=== PATIENT | female | born 1985 | race Caucasian/White ===

== ENCOUNTER 2025-01-19 08:24 | Observation (INO) ==
--- NOTE | 2025-01-19 08:50 | EKG ---
Test Reason : possible stroke Blood Pressure : */* mmHG Vent. Rate : 79 BPM Atrial Rate : 79 BPM P-R Int : 162 ms QRS Dur : 96 ms QT Int : 398 ms P-R-T Axes : 57 22 55 degrees QTc Int : 456 ms Normal sinus rhythm Normal ECG No previous ECGs available Confirmed by Sumit Thorpe MD ([id number]) on 01/19/2025 10:44:27 AM Referred By: Confirmed By: Sumit Thorpe MD
[2025-01-19 08:57] LABS: MEAN PLATELET VOLUME 8.1 fL (7.4-11.0); RED CELL DISTRIBUTION WIDTH 13.8 % (11.6-16.5)
[2025-01-19 09:01] LABS: INR 1.07 (0.8-1.3)
[2025-01-19 09:21] LABS: COR CA(FOR HYPOALB) 9.1 mg/dL (8.5-10.1); COR NA(FOR HYPERGLY) 140 mmol/L (136-145); CREATININE 1.03 mg/dL (0.55-1.02); eGFR NON BLACK RACES > 60 (>60)
--- NOTE | 2025-01-19 09:21 | DR.WEAKNES ---
HPI Time Seen Time Seen by Provider: 01/19/25 09:12 Primary Care Physician Primary Care Physician: Lana Wiggins HPI Comment HPI Comment: Patient had episode of aphasia earlier today. She is already on blood thinners due to history of DVT. Patient states her symptoms have pretty much completely resolved. 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 She does have history of migraines and her blood pressure is very high. Stroke protocol was called and I spoke with Dr. Alex with telemed neurology, she suspects complicated migraine versus hypertensive urgency versus TIA. CT of the head unclear, she reports. Will await radiology interpretation. Complaints Chief Complaint:: pt states that she was on the way to work and was on a phone call with her sister when all of a sudden she became aphasic for about 1.5- 2 minutes. She had no complaints of weakness or other symptoms just some pain that ran under her left eye. 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 hands Family History History of Family Medical Conditions: Yes Family Medical History: Diabetes Mellitus, Cancer, Coronary Artery Disease and Hypertension Social History Does patient currently use any type of tobacco product: No Have you used tobacco products in the last 12 months: No Type of Tobacco Use: None Alcohol Use: None Do you use any recreational Drugs:: No Lives With: Family Lives Where: Home Travel Risk Coronavirus risk:travel/contact w/high risk person: No Has patient experienced Coronavirus symptoms: No Infectious screening Have you traveled outside the country in the last 6 months?: No Isolation: Standard ROS Review of Systems Constitutional: No Symptoms Reported Eyes: No Symptoms Reported ENTM: No Symptoms Reported Respiratoy: No Symptoms Reported Cardiovascular: No Symptoms Reported Gastrointestinal/Abdominal: No Symptoms Reported Genitourinary: No Symptoms Reported Neurological: See HPI Musculoskeletal: No Symptoms Reported Integumentary: No Symptoms Reported Hematologic/Lymphatic: No Symptoms Reported Endocrine: No Symptoms Reported Psychiatric: No Symptoms Reported All Other Systems: Reviewed and Negative PE Vital Signs Vitals: Vital Signs Temperature 97.6 F Pulse Rate 79 Pulse Rate 66 Pulse Rate 69 Pulse Rate 66 Pulse Rate 67 Pulse Rate 71 Pulse Rate 68 Pulse Rate 68 Pulse Rate 87 Pulse Rate 93 Pulse Rate 71 Pulse Rate 79 Pulse Rate 74 Pulse Rate 81 Pulse Rate 78 Respiratory Rate 23 Respiratory Rate 22 Respiratory Rate 19 Respiratory Rate 18 Blood Pressure 145/66 Blood Pressure 168/91 Blood Pressure 148/80 Blood Pressure 153/90 Blood Pressure 202/98 Blood Pressure 204/96 Blood Pressure 204/96 Blood Pressure 204/96 Blood Pressure 202/98 O2 Sat by Pulse Oximetry 100 O2 Sat by Pulse Oximetry 99 O2 Sat by Pulse Oximetry 92 O2 Sat by Pulse Oximetry 99 O2 Sat by Pulse Oximetry 98 O2 Sat by Pulse Oximetry 97 O2 Sat by Pulse Oximetry 99 O2 Sat by Pulse Oximetry 98 O2 Sat by Pulse Oximetry 97 O2 Sat by Pulse Oximetry 91 O2 Sat by Pulse Oximetry 97 O2 Sat by Pulse Oximetry 97 O2 Sat by Pulse Oximetry 97 O2 Sat by Pulse Oximetry 98 O2 Sat by Pulse Oximetry 98 General Limitations: No Limitations General Appearance: Alert and In No Apparent Distress Head Head Exam: Normal Inspection Eyes Eye exam: Normal Appearance Eyelids: Normal Inspection: Bilateral Pupils: Regular, Round: Bilateral Sclera/Conjunctival: Normal Inspection: Bilateral Anterior Chamber: Normal Inspection: Bilateral ENT ENT Exam: Normal Exam Mouth Exam: Normal Inspection Throat Exam: Normal Inspection Neck Neck Exam: Normal Inspection Chest Chest Inspection: Normal Inspection Respiratory Respiratory Exam: Normal Lung Sounds Bilat Respiratory Exam: Bilateral: Clear to Auscultation Cardiovascular Cardiovascular Exam: Regular Rate and Normal Rhythm Abdominal Exam Abdominal Exam: Normal Inspection, Normal Bowel Sounds and Soft Extremities Extremities Exam: Normal Inspection Back Back Exam: Normal Inspection Neurologic Neurological Exam: Alert, Oriented X3, CN II-XII Intact (Residual from Ramos's palsy), Normal Gait, Reflexes Normal and Other (Residual from Ramos's palsy on the left side of the face otherwise negative neurologic exam.); negative Motor Sensory Deficit Psychiatric Psychiatric Exam: Normal Affect and Normal Mood Skin Skin Exam: Warm, Dry, Intact and Normal Color COURSE Treatment Treatment: Patient's symptoms resolved and now at baseline. Patient did develop a mild headache and she states she feels may be related to the stress of the situation and does not feel like her typical migraines. Patient requested Tylenol. Discussed results of workup with patient. MRI shows possible acute versus subacute small infarcts. Patient agreeable with admission for observation. Consultation Consultation Comments: Stroke protocol was called and I spoke with with telemed neurology, she suspects complicated migraine versus hypertensive urgency versus TIA. CT of the head unclear, she reports. Will await radiology interpretation. Discussed case with Dr. Ty after results of imaging came back. She is agreeable to admission. [facility]OR Labs Reviewed Laboratory Results Reviewed?: Yes 01/19/25 08:45 01/19/25 08:45 Laboratory: WBC 10.7 X10^3/uL (3.6-10.0) H 01/19/25 08:45 RBC 4.82 X10^6/uL (3.5-5.4) 01/19/25 08:45 Hgb 14.2 g/dL (12.0-16.0) 01/19/25 08:45 Hct 42.9 % (36.0-47.0) 01/19/25 08:45 MCV 88.9 fL (80.0-100.0) 01/19/25 08:45 MCH 29.6 pg (27.0-34.0) 01/19/25 08:45 MCHC 33.3 g/dL (33.0-35.0) 01/19/25 08:45 RDW 13.8 % (11.6-16.5) 01/19/25 08:45 Plt Count 278 X10^3/uL (150.0-450.0) 01/19/25 08:45 MPV 8.1 fL (7.4-11.0) 01/19/25 08:45 Neut % (Auto) 53.4 % (42.0-75.0) 01/19/25 08:45 Lymph % (Auto) 38.4 % (21.0-51.0) 01/19/25 08:45 Clark % (Auto) 5.6 % (0.0-13.0) 01/19/25 08:45 Eos % (Auto) 1.7 % (0.9-2.9) 01/19/25 08:45 Baso % (Auto) 0.9 % (0.2-1.0) 01/19/25 08:45 Neut # (Auto) 5.7 x10^3/uL (2.2-4.8) H 01/19/25 08:45 Lymph # (Auto) 4.1 X10^3/uL (1.3-2.9) H 01/19/25 08:45 Clark # (Auto) 0.6 x10^3/uL (0.3-0.8) 01/19/25 08:45 Eos # (Auto) 0.2 x10^3/uL (0.0-0.2) 01/19/25 08:45 Baso # (Auto) 0.1 X10^3/uL (0.0-0.1) 01/19/25 08:45 Absolute Nucleated RBC 0.1 /100WBC 01/19/25 08:45 PT 14.1 SECONDS (11.8-14.3) 01/19/25 08:45 INR Target Range - 01/19/25 08:45 INR 1.07 (0.8-1.3) 01/19/25 08:45 APTT 25.8 SECONDS (22.9-36.5) 01/19/25 08:45 PTT Comment - 01/19/25 08:45 Sodium 139 mmol/L (136-145) 01/19/25 08:45 Corrected Sodium 140 mmol/L (136-145) 01/19/25 08:45 Potassium 3.6 mmol/L (3.5-5.1) 01/19/25 08:45 Chloride 105 mmol/L (98-107) 01/19/25 08:45 Carbon Dioxide 26.9 mmol/L (21-32) 01/19/25 08:45 BUN 16 mg/dL (7-18) 01/19/25 08:45 Creatinine 1.03 mg/dL (0.55-1.02) H 01/19/25 08:45 Est GFR (MDRD) Af Amer > 60 (>60) 01/19/25 08:45 Est GFR (MDRD) Non-Af > 60 (>60) 01/19/25 08:45 Glucose 130 mg/dL (65-99) H 01/19/25 08:45 Calcium 8.4 mg/dL (8.5-10.1) L 01/19/25 08:45 Corrected Calcium 9.1 mg/dL (8.5-10.1) 01/19/25 08:45 Total Bilirubin 0.30 mg/dL (0.2-1.0) 01/19/25 08:45 AST 20 Units/L (15-37) 01/19/25 08:45 ALT 17 Units/L (12-78) 01/19/25 08:45 Alkaline Phosphatase 103 Units/L (46-116) 01/19/25 08:45 Creatine Kinase 77 Units/L (26-192) 01/19/25 08:45 Troponin I High Sens 17.7 ng/L (4.0-60.0) 01/19/25 08:45 Total Protein 8.3 g/dL (6.4-8.2) H 01/19/25 08:45 Albumin 3.1 g/dL (3.4-5.0) L 01/19/25 08:45 Globulin 5.2 g/dL (2.5-4.5) H 01/19/25 08:45 Albumin/Globulin Ratio 0.6 Ratio (1.1-2.1) L 01/19/25 08:45 Specimen Type Clean catch urine 01/19/25 09:13 Urine Color Yellow (YELLOW) 01/19/25 09:13 Urine Appearance Clear (CLEAR) 01/19/25 09:13 Urine pH 6.0 (5.0 - 8.0) 01/19/25 09:13 Ur Specific [place] 1.020 (1.000-1.030) 01/19/25 09:13 Urine Protein 2+ (NEGATIVE) 01/19/25 09:13 Urine Glucose (UA) Negative (NEGATIVE) 01/19/25 09:13 Urine Ketones Negative (NEGATIVE) 01/19/25 09:13 Urine Blood 1+ (NEGATIVE) 01/19/25 09:13 Urine Nitrite Negative (NEGATIVE) 01/19/25 09:13 Urine Bilirubin Negative (NEGATIVE) 01/19/25 09:13 Urine Urobilinogen Normal (NORMAL) 01/19/25 09:13 Ur Leukocyte Esterase 1+ (NEGATIVE) 01/19/25 09:13 Urine RBC 0-2 /HPF (0-3) 01/19/25 09:13 Urine WBC 0-2 /HPF (0-5) 01/19/25 09:13 Ur Squamous Epith Cells Rare /HPF (NEGATIVE) 01/19/25 09:13 Urine Bacteria Negative /HPF (NEGATIVE) 01/19/25 09:13 Ur Culture Indicated? No/not indicated 01/19/25 09:13 Opioid Opioid Risk Tool Age (Luis box if 16-45): Yes History of Preadolescent Sexual Abuse: No Total: 1 Total Score Risk Category: Low Risk Copyright: [facility] predicting aberrant behaviors Discharge Plan Diagnosis Discharge Problem: Acute ischemic stroke, Acute CVA (cerebrovascular accident) Discharge Plan Patient Disposition: ADMITTED INPATIENT Condition: Stable Prescriptions: No Action metformin 750 mg tablet extended release 24 hr 750 mg PO BID gabapentin 300 mg capsule 300 mg PO BID topiramate 25 mg tablet 25 mg PO QDAY sertraline 100 mg tablet 100 mg PO QDAY Turqoz (28) 0.3-30 mg-mcg tablet 1 tab PO QDAY buspirone 10 mg tablet 10 mg PO QDAY PRN pantoprazole 40 mg tablet,delayed release (DR/EC) 40 mg PO QDAY cyclobenzaprine 10 mg tablet 10 mg PO TID PRNQty: 14 0RF meloxicam 15 mg tablet 15 mg PO QDAY Qty: 7 0RF Eliquis 5 mg tablet 5 mg PO BID Health Concerns: Post Hospitalization: new medications and changes needed to prevent readmission or further decline. Pt educated and given instructions on all concerns. Plan of Treatment: Continue with present treatment and follow up plan. Pt is to keep follow up appointment as instructed and take medications as ordered. Orders to Discharge Patient Discharge Orders: Transfer (Routine); Ordered 01/19/25 Ordered By: Alexi Magallanes Follow ups/Referrals Follow ups/Referrals: Lana Wiggins [Primary Care Provider, Unknown] - 3 days Instructions Stand Alone Forms: Find Help Web Site, Post Hospital Follow Up Care Print Language: SETSWANA
[2025-01-19 09:32] LABS: BLOOD/HEMOGLOBIN,URINE 1+ (NEGATIVE); LEUKOCYTE ESTERASE ,URINE 1+ (NEGATIVE); NITRITES,URINE NEGATIVE (NEGATIVE)
[2025-01-19 09:35] LABS: APPEARANCE,URINE CLEAR (CLEAR)
[2025-01-19] MEDS: NS 1,000 ML IV 1,000 ML IV SCH (09:44)
--- NOTE | 2025-01-19 09:45 | CT ---
EXAM: BRAIN W/O CON HISTORY: EPISODE OF BEING UNABLE TO SPEAK / POSSIBLE STROKE; COMPARISON: May 2021 TECHNIQUE: Multiple axial images of the brain were obtained from the skull base to the vertex without administration of IV contrast. Dose reduction techniques including Automated Exposure Control (AEC) and adjustment of mA and kV were utilized. FINDINGS: No acute intraparenchymal hemorrhage or mass can be identified. No extra-axial fluid collections are seen. No alteration in the attenuation of the brain parenchyma can be identified to suggest acute or subacute ischemic change. The ventricular system is symmetric and nondilated. The extracranial structures appear unremarkable. IMPRESSION: 1. No acute intracranial process can be identified. THIS IS AN ELECTRONICALLY VERIFIED FINAL REPORT 01/19/2025 9:42 AM - Electronically signed by Antoine Ya MD
--- NOTE | 2025-01-19 09:51 | CT ---
EXAM: CAROTID CTA HISTORY: EPISODE OF BEING UNABLE TO SPEAK / POSSIBLE STROKE; COMPARISON: None available. TECHNIQUE: Multiple axial images of the neck were obtained from skull base to the aortic arch after the administration of IV contrast. Sagittal and coronal reformats were performed and reviewed. 3D reconstruction utilizing maximum intensity projection imaging was performed and reviewed. Dose reduction techniques including Automated Exposure Control (AEC) and adjustment of mA and kV were utilized. FINDINGS: The visualized portions of the posterior fossa and orbits are unremarkable in appearance. The parotid glands, submandibular glands, and thyroid gland are unremarkable in their contrast appearance. The carotid space on the right and left is unremarkable. No mass or significant lymphadenopathy can be identified. The prevertebral and paraspinous regions are unremarkable. The nasopharynx, oropharynx, hypopharynx are unremarkable. The larynx appears symmetric. The visualized portions of the mediastinum are unremarkable as well. The bony structures appear intact. The visualized portions of the lung apex on the right and left are unremarkable as well. Visualized portions of the aorta is normal. 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 The carotid arteries are normal in caliber and contour bilaterally with no significant plaque formation or dissection. The ICAs are normal. The vertebral arteries are left-sided dominant but normal. IMPRESSION: Unremarkable CTA neck THIS IS AN ELECTRONICALLY VERIFIED FINAL REPORT 01/19/2025 9:48 AM - Electronically signed by Antoine Ya MD
[2025-01-19 09:57] LABS: SQUAMOUS EPITHELIAL CELL,UR RARE /HPF (NEGATIVE)
--- NOTE | 2025-01-19 10:04 | CT ---
EXAM: BRAIN CTA HISTORY: EPISODE OF BEING UNABLE TO SPEAK / POSSIBLE STROKE; COMPARISON: CT same day TECHNIQUE: Multiple axial images of the brain were obtained from the skull base to the vertex after the administration of IV contrast. Sagittal and coronal reformats were performed utilizing maximum intensity projection imaging. Dose reduction techniques including Automated Exposure Control (AEC) and adjustment of mA and kV were utilized. FINDINGS: Delete The anterior circulation demonstrates normal anatomic findings. The internal carotid artery, M1 segment, and A1 segments do not demonstrates atherosclerotic changes. No aneurysmal changes or evidence for vascular malformation can be identified. The posterior circulation demonstrates a posterior communicating artery on the right and left. The vertebrobasilar system is left-sided dominant but normal. IMPRESSION: Unremarkable CTA of the intracranial vasculature. THIS IS AN ELECTRONICALLY VERIFIED FINAL REPORT 01/19/2025 10:00 AM - Electronically signed by Antoine Ya MD
--- NOTE | 2025-01-19 11:25 | MRI ---
EXAM: BRAIN W/O CON HISTORY: EPISODE NOT ABLE TO SPEAK THIS AM ; COMPARISON: None available. TECHNIQUE: Multiplanar multi-sequence MRI of the brain was obtained utilizing standard departmental protocol. Sagittal and axial T1 weighted images were obtained. Axial T2 and flair weighted images were performed as well. Axial diffusion weighted and ADC trace mapping was performed. FINDINGS: The midline structures appear unremarkable. The evaluation of the brain parenchyma demonstrates no abnormal signal characteristics to suggest intraparenchymal mass or hemorrhage. No extra-axial fluid collections are observed. The ventricular system appears symmetric and nondilated. The CP angle is normal in its appearance without brainstem mass or evidence for acoustic neuroma. The flow voids on both T1 and T2 weighted imaging appear unremarkable. Evaluation of the diffusion weighted imaging does demonstrate a tiny focus of restricted diffusion in the left supratentorial parietal subcortical white m atter on image 17 of the DWI sequences. This demonstrates dropout on the ADC mapping and is most compatible with a small focus of acute ischemia. There are no significant white matter signal changes noted. The extracranial structures are unremarkable. IMPRESSION: Tiny focus of acute/subacute infarcts involving the left parietal subcortical white matter as above. THIS IS AN ELECTRONICALLY VERIFIED FINAL REPORT 01/19/2025 11:22 AM - Electronically signed by Antoine Ya MD
[2025-01-19] MEDS: OFIRMEV IV 1000 MG VIAL 1,000 MG/100 ML VIAL IV ONE (12:40)
[2025-01-19] MEDS ORDERED: NovoLIN R (or HumuLIN R) SUBCUT PRN (13:31)
[2025-01-19 14:18] VITALS: BMI 58.5
[2025-01-19] MEDS: K-DUR TAB 20 MEQ PO ONE (15:00)
[2025-01-19] MEDS: NORCO 5/325 MG TAB PO PRN (16:59)
[2025-01-19] MEDS: OMNIPAQUE 350 mg/mL 100 mL BTL 100 ML ONE (18:25)
[2025-01-19] MEDS: CONSULT PHARMACY - POTASSIUM & MAGNESIUM XX SCH (18:25)
[2025-01-19] MEDS ORDERED: SNACK - Diabetic Appropriate PO SCH (20:00)
[2025-01-19] MEDS ORDERED: ZOLOFT ONE (20:13)
[2025-01-19] MEDS: ELIQUIS PO SCH (20:44)
[2025-01-19] MEDS: ZOLOFT PO SCH (20:44)
[2025-01-19] MEDS: NEURONTIN CAP 300 MG PO SCH (20:44)
[2025-01-19] MEDS: TYLENOL 325 MG TAB PO PRN (22:07)
--- NOTE | 2025-01-20 06:25 | RAD ---
EXAM: CHEST, 1 VIEW HISTORY: SOB; COMPARISON: None FINDINGS: The cardiomediastinal silhouette is normal in size. No acute airspace disease. No pneumothorax or effusion. No acute osseous abnormality. IMPRESSION: No acute cardiopulmonary disease. THIS IS AN ELECTRONICALLY VERIFIED FINAL REPORT 01/20/2025 6:22 AM - Electronically signed by Cristian Metcalf MD
[2025-01-20 06:48] LABS: MEAN PLATELET VOLUME 8.6 fL (7.4-11.0); RED CELL DISTRIBUTION WIDTH 13.7 % (11.6-16.5)
[2025-01-20 06:58] LABS: COR CA(FOR HYPOALB) 9.4 mg/dL (8.5-10.1); CREATININE 0.95 mg/dL (0.55-1.02); eGFR NON BLACK RACES > 60 (>60)
[2025-01-20] MEDS ORDERED: CONSULT PHARMACY - POTASSIUM & MAGNESIUM XX SCH (08:00)
[2025-01-20] MEDS: K-DUR TAB 20 MEQ PO SCH (08:41)
[2025-01-20] MEDS: MAG-OX TAB PO SCH (08:41)
[2025-01-20] MEDS: TOPAMAX PO SCH (08:41)
[2025-01-20] MEDS: PROTONIX TAB 40 MG PO SCH (08:42)
[2025-01-20] MEDS ORDERED: ZOLOFT PO SCH (09:00)
[2025-01-20] MEDS ORDERED: TORADOL 30 MG VIAL IVP PRN (09:33)
[2025-01-20] MEDS: LIPITOR TAB 40 MG PO SCH (09:52)
[2025-01-20] MEDS: TORADOL 30 MG VIAL IVP ONE (09:52)
[2025-01-20 10:18] LABS: CHOL/HDL RATIO 3.4 (0.0-5.0)
[2025-01-20] MEDS: ASPIRIN 81 MG CHEWTAB PO SCH (15:58)
[2025-01-20 16:05] VITALS: BP 134/72; PULSE 66; RESP 19; TEMP 98.7; O2SAT 94
--- NOTE | 2025-01-22 19:15 | TELESTROKE ---
[facility] Consult Date of Consult Date of Exam: 01/19/25 Time of Arrival to the ED: 08:24 Allergies Allergies Allergy/AdvReac Type Severity Reaction Status Date / Time codeine Allergy Verified 04/14/24 11:53 Penicillins AdvReac Intermediate Verified 04/14/24 11:53 Vital Signs Vital Signs: Temp Pulse Resp BP Pulse Ox O2 Del Method 01/20/25 16:00 98.7 F 66 19 134/72 94 L Room Air 01/20/25 12:00 98.2 F 68 20 130/77 97 Room Air 01/20/25 10:22 20 01/20/25 09:52 20 01/20/25 09:43 20 01/20/25 08:45 20 01/20/25 08:00 98.1 F 72 20 123/57 96 Room Air 01/20/25 07:00 Room Air 01/20/25 04:00 98.0 F 66 20 146/73 97 Room Air 01/20/25 00:00 98.1 F 70 20 144/77 96 Room Air 01/19/25 23:07 16 01/19/25 22:07 16 01/19/25 20:00 97.9 F 65 19 120/70 96 Room Air History of Present Illness History of Present Illness: [facility] Patient Name:Juliana Jung Date of :1985 Identification Number: Date of Service:01/19/2025 08:42:01 Diagnosis:R47.01 - Aphasia Impression: 39 years old right handed female with history of migraine, PCOS, anxiety, GERD, left Ramos's palsy, DVT, on Eliquis presents after having a transient episode of aphasia now resolved. Patient is hypertensive on arrival to the ED/ Current NIHSS is 2 for left facial palsy which is residual from prior Ramos's palsy. NCCT showed no acute abnormalities. TNK not offered due to Eliquis and resolved symptoms. CTA head/neck showed no evidence of LVO. Diagnostic considerations include TIA, HTN urgency, small embolic stroke, and migraine. Recommend to give aspirin 325 mg now and to admit for further work-up. Our recommendations are outlined below. Recommendations: Stroke/Telemetry Floor Neuro Checks (Q4) Bedside Swallow Eval DVT Prophylaxis IV Fluids, Normal Saline Head of Bed 30 Degrees Euglycemia and Avoid Hyperthermia (PRN Acetaminophen) give aspirin 325 mg Sign Out: Discussed with Emergency Department Provider Advanced Imaging: CTA Head and Neck Completed. LVO:No Patient is not a candidate for CARLOS Metrics: Last Known Well: 01/19/2025 07:30:00 Dispatch Time: 01/19/2025 08:42:01 Arrival Time: 01/22/2025 08:24:00 Initial Response Time: 01/19/2025 08:48:23Symptoms: Difficulty speaking. Initial patient interaction: 01/19/2025 08:49:00 NIHSS Assessment Completed: 01/19/2025 08:54:41Patient is not a candidate for Thrombolytic. Thrombolytic Medical Decision: 01/19/2025 08:54:43Patient was not deemed candidate for Thrombolytic because of following reasons: Use of NOAC in last 48 hrs. . Resolved symptoms . CT Head: I personally reviewed all the CT images that were available to me and it showed: no acute abnormalities Primary Provider Notified of Diagnostic Impression and Management Plan on: 01/19/2025 09:12:05 History of Present Illness:Patient is a 39 year old Female. Patient was brought by private transportation with symptoms of Difficulty speaking. Patient is a 39 years old right handed female with history of migraine, PCOS, anxiety, GERD, left Ramos's palsy, DVT, on Eliquis who presents to the ED complaining of difficulty speaking. LKW at 7:30am. Patient states she was talking to her sister on the phone when she started having trouble getting words out and completing sentences. She denies any other associated symptoms. Currently denies headache. She drove herself to the ED. Symptoms are now improved. Past Medical History: Migraine Headaches There is no history of Stroke Other PMH: Ramos's Palsy, PCOS, anxiety, GERD, DVT Medications: Anticoagulant use:YesEliquis, last dose this am No Antiplatelet use Reviewed EMR for current medications Allergies: Reviewed Description:PCN, codefreddy Social History: Smoking: No Alcohol Use: No Family History: There is no family history of premature cerebrovascular disease pertinent to this consultation ROS : 14 Points Review of Systems was performed and was negative except mentioned in HPI. Past Surgical History: There Is No Surgical History Contributory To Todays Visit Examination: BP(204/96),Pulse(87), 1A: Level of Consciousness - Alert; keenly responsive+ 0 1B: Ask Month and Age - Both Questions Right+ 0 1C: Blink Eyes & Squeeze Hands - Performs Both Tasks+ 0 2: Test Horizontal Extraocular Movements - Normal+ 0 3: Test Visual Domingo - No Visual Loss+ 0 4: Test Facial Palsy (Use Grimace if Obtunded) - Partial paralysis (lower face) + 2 5A: Test Left Arm Motor Drift - No Drift for 10 Seconds+ 0 5B: Test Right Arm Motor Drift - No Drift for 10 Seconds+ 0 6A: Test Left Leg Motor Drift - No Drift for 5 Seconds+ 0 6B: Test Right Leg Motor Drift - No Drift for 5 Seconds+ 0 7: Test Limb Ataxia (FNF/Heel-Sagastume) - No Ataxia+ 0 8: Test Sensation - Normal; No sensory loss+ 0 9: Test Language/Aphasia - Normal; No aphasia+ 0 10: Test Dysarthria - Normal+ 0 11: Test Extinction/Inattention - No abnormality+ 0 NIHSS Score:2 NIHSS Free Text :residual left Ramos's palsy Pre-Morbid Modified Rigo Scale:0 Points = No symptoms at all Spoke with :Elpidio This consult was conducted in real time using interactive audio and video technology. Patient was informed of the technology being used for this visit and agreed to proceed. Patient located in hospital and provider located at home/office setting. Patient is being evaluated for possible acute neurologic impairment and high probability of imminent or life-threatening deterioration. I spent total of 40 minutes providing care to this patient, including time for face to face visit via telemedicine, review of medical records, imaging studies and discussion of findings with providers, the patient and/or family. Dr Marie Khan [facility] For Inpatient follow-up with [facility] physician please call [facility] at . As we are not an outpatient service for any post hospital discharge needs please contact the hospital for assistance. If you have any questions for the [facility] physicians or need to reconsult for clinical or diagnostic changes please contact us via [facility] at . Medical Decision Making 01/20/25 05:35 01/20/25 05:35
--- NOTE | 2025-01-26 14:37 | DR.SSS ---
SHORT STAY SUMMARY Past Medical History Past Medical History: Anxiety, Migraines, GERD and Kidney Stones Past Surgical History Surgical History: PCTS Surgery, Ortho Surgery, Tonsillectomy, Lithotripsy and Other Allergies Allergies Allergy/AdvReac Type Severity Reaction Status Date / Time codeine Allergy Verified 04/14/24 11:53 Penicillins AdvReac Intermediate Verified 04/14/24 11:53 Medications Home Medications: codeine Allergy (Verified 04/14/24 11:53) Penicillins Adverse Reaction (Intermediate, Verified 04/14/24 11:53) CONTINUE taking the following medications apixaban 5 mg tablet (Eliquis) 5 mg PO BID 01/19/25 [History] New Prescriptions aspirin 81 mg tablet 81 mg PO QDAY #30 tabs 01/20/25 [Rx] atorvastatin 40 mg tablet 40 mg PO DAILY 30 days #30 tabs 01/20/25 [Rx] Family History Family Medical History: Diabetes Mellitus, Cancer, DC and Heart Failure Social History Does patient currently use any type of tobacco product: No Have you used tobacco products in the last 12 months: No Type of Tobacco Use: None Alcohol Use: None Drug Use: None Physical Exam Vital Signs: Last Vital Signs Temp 98.2 F 01/20/25 12:00 Pulse 68 01/20/25 12:00 Resp 20 01/20/25 12:00 BP 130/77 01/20/25 12:00 Pulse Ox 97 01/20/25 12:00 O2 Del Method Room Air 01/20/25 12:00 Labs Labs: Laboratory Last Values WBC 10.1 X10^3/uL (3.6-10.0) H 01/20/25 05:35 RBC 4.71 X10^6/uL (3.5-5.4) 01/20/25 05:35 Hgb 14.0 g/dL (12.0-16.0) 01/20/25 05:35 Hct 42.0 % (36.0-47.0) 01/20/25 05:35 MCV 89.2 fL (80.0-100.0) 01/20/25 05:35 MCH 29.6 pg (27.0-34.0) 01/20/25 05:35 MCHC 33.2 g/dL (33.0-35.0) 01/20/25 05:35 RDW 13.7 % (11.6-16.5) 01/20/25 05:35 Plt Count 260 X10^3/uL (150.0-450.0) 01/20/25 05:35 MPV 8.6 fL (7.4-11.0) 01/20/25 05:35 Neut % (Auto) 42.7 % (42.0-75.0) 01/20/25 05:35 Lymph % (Auto) 48.6 % (21.0-51.0) 01/20/25 05:35 Day % (Auto) 5.6 % (0.0-13.0) 01/20/25 05:35 Eos % (Auto) 2.2 % (0.9-2.9) 01/20/25 05:35 Baso % (Auto) 0.9 % (0.2-1.0) 01/20/25 05:35 Neut # (Auto) 4.3 x10^3/uL (2.2-4.8) 01/20/25 05:35 Lymph # (Auto) 4.9 X10^3/uL (1.3-2.9) H 01/20/25 05:35 Day # (Auto) 0.6 x10^3/uL (0.3-0.8) 01/20/25 05:35 Eos # (Auto) 0.2 x10^3/uL (0.0-0.2) 01/20/25 05:35 Baso # (Auto) 0.1 X10^3/uL (0.0-0.1) 01/20/25 05:35 Absolute Nucleated RBC 0.1 /100WBC 01/20/25 05:35 PT 14.1 SECONDS (11.8-14.3) 01/19/25 08:45 INR Target Range - 01/19/25 08:45 INR 1.07 (0.8-1.3) 01/19/25 08:45 APTT 25.8 SECONDS (22.9-36.5) 01/19/25 08:45 PTT Comment - 01/19/25 08:45 Sodium 140 mmol/L (136-145) 01/20/25 05:35 Corrected Sodium TNP 01/20/25 05:35 Potassium 3.6 mmol/L (3.5-5.1) 01/20/25 05:35 Chloride 105 mmol/L (98-107) 01/20/25 05:35 Carbon Dioxide 27.2 mmol/L (21-32) 01/20/25 05:35 BUN 13 mg/dL (7-18) 01/20/25 05:35 Creatinine 0.95 mg/dL (0.55-1.02) 01/20/25 05:35 Est GFR (MDRD) Af Amer > 60 (>60) 01/20/25 05:35 Est GFR (MDRD) Non-Af > 60 (>60) 01/20/25 05:35 Glucose 92 mg/dL (65-99) 01/20/25 05:35 Hemoglobin A1c 6.2 % 01/20/25 05:35 Calcium 8.6 mg/dL (8.5-10.1) 01/20/25 05:35 Corrected Calcium 9.4 mg/dL (8.5-10.1) 01/20/25 05:35 Magnesium 1.6 mg/dL (2.0-2.9) L 01/20/25 05:35 Total Bilirubin 0.30 mg/dL (0.2-1.0) 01/20/25 05:35 AST 22 Units/L (15-37) 01/20/25 05:35 ALT 20 Units/L (12-78) 01/20/25 05:35 Alkaline Phosphatase 99 Units/L (46-116) 01/20/25 05:35 Creatine Kinase 77 Units/L (26-192) 01/19/25 08:45 Troponin I High Sens 17.7 ng/L (4.0-60.0) 01/19/25 08:45 Total Protein 8.1 g/dL (6.4-8.2) 01/20/25 05:35 Albumin 3.0 g/dL (3.4-5.0) L 01/20/25 05:35 Globulin 5.1 g/dL (2.5-4.5) H 01/20/25 05:35 Albumin/Globulin Ratio 0.6 Ratio (1.1-2.1) L 01/20/25 05:35 Triglycerides 97 mg/dL (0-150) 01/20/25 05:35 Cholesterol 126 mg/dL (0-200) 01/20/25 05:35 LDL Cholesterol, Calc 70 mg/dL (0-100) 01/20/25 05:35 HDL Cholesterol 37 mg/dL (40-60) L 01/20/25 05:35 Cholesterol/HDL Ratio 3.4 (0.0-5.0) 01/20/25 05:35 Specimen Type Clean catch urine 01/19/25 09:13 Urine Color Yellow (YELLOW) 01/19/25 09:13 Urine Appearance Clear (CLEAR) 01/19/25 09:13 Urine pH 6.0 (5.0 - 8.0) 01/19/25 09:13 Ur Specific [place] 1.020 (1.000-1.030) 01/19/25 09:13 Urine Protein 2+ (NEGATIVE) 01/19/25 09:13 Urine Glucose (UA) Negative (NEGATIVE) 01/19/25 09:13 Urine Ketones Negative (NEGATIVE) 01/19/25 09:13 Urine Blood 1+ (NEGATIVE) 01/19/25 09:13 Urine Nitrite Negative (NEGATIVE) 01/19/25 09:13 Urine Bilirubin Negative (NEGATIVE) 01/19/25 09:13 Urine Urobilinogen Normal (NORMAL) 01/19/25 09:13 Ur Leukocyte Esterase 1+ (NEGATIVE) 01/19/25 09:13 Urine RBC 0-2 /HPF (0-3) 01/19/25 09:13 Urine WBC 0-2 /HPF (0-5) 01/19/25 09:13 Ur Squamous Epith Cells Rare /HPF (NEGATIVE) 01/19/25 09:13 Urine Bacteria Negative /HPF (NEGATIVE) 01/19/25 09:13 Ur Culture Indicated? No/not indicated 01/19/25 09:13 Discharge Medications Discharge Medications: Home Medication List apixaban 5 mg tablet (Eliquis) 5 mg PO BID 01/19/25 [History] aspirin 81 mg tablet 81 mg PO QDAY #30 tabs 01/20/25 [Rx] atorvastatin 40 mg tablet 40 mg PO DAILY 30 days #30 tabs 01/20/25 [Rx] Prescriptions: aspirin Sepideh Ty atorvastatin Sepideh yT Discharge Plan Discharge Plan Patient Disposition: 01 HOME, SELF-CARE Condition: Stable Health Concerns: Post Hospitalization: new medications and changes needed to prevent readmission or further decline. Pt educated and given instructions on all concerns. Care Plan Goals: Problem: Pain/Alteration in Comfort Goal: Improve/ Resolve Pain; Achieve Pain Tolerance Instructions: Take pain medications as prescribed. Contact your primary care provider if your pain is unrelieved or worsens. Follow up with primary care provider as directed. Plan of Treatment: Continue with present treatment and follow up plan. Pt is to keep follow up appointment as instructed and take medications as ordered. Prescription drug monitoring program results: PDMP reviewed and no concerns identified Prescriptions: New atorvastatin 40 mg Tablet 40 mg PO DAILY 30 Days Qty: 30 0RF aspirin 81 mg tablet 81 mg PO QDAY Qty: 30 0RF Continued metformin 750 mg tablet extended release 24 hr 750 mg PO BID gabapentin 300 mg capsule 300 mg PO BID topiramate 25 mg tablet 25 mg PO QDAY sertraline 100 mg tablet 100 mg PO QHS Turqoz (28) 0.3-30 mg-mcg tablet 1 tab PO QDAY buspirone 10 mg tablet 10 mg PO QDAY PRN pantoprazole 40 mg tablet,delayed release (DR/EC) 40 mg PO QDAY Eliquis 5 mg tablet 5 mg PO BID Orders to Discharge Patient Discharge Orders: Discharge (Routine); Ordered 01/20/25 Ordered By: Sepideh Ty Follow ups/Referrals Follow ups/Referrals: Lana Wiggins [Primary Care Provider, Unknown] - 01/27/25 11:00 am Instructions Instructions: Stroke Prevention, Warning Signs of a Stroke Stand Alone Forms: Excuse From Work or School, Find Help Web Site, Post Hospital Follow Up Care Print Language: [place]
== END 2025-01-20 16:20 | disposition home or self-care (01) ==
LOC: MED/SURG 08:24 → ER 08:24 → MED/SURG 13:22
PROVIDERS: ADMIT Internal Medicine; ATTEND Internal Medicine
DX: E83.51 Hypocalcemia; G51.0 Bell's palsy; R73.09 Other abnormal glucose; I63.89 Other cerebral infarction; E83.42 Hypomagnesemia; F41.8 Other specified anxiety disorders; Z86.718 Personal history of other venous thrombosis and embolism; R06.02 Shortness of breath; R47.01 Aphasia; Z86.69 Personal history of other diseases of the nervous system and sense organs; Z79.01 Long term (current) use of anticoagulants; K21.9 Gastro-esophageal reflux disease without esophagitis